=== PATIENT | male | born 1995 | race Two or more races ===

== ENCOUNTER → 2024-04-24 | Outpatient (CLI) | payer MEDICAID, SELFPAY ==
--- NOTE | 2024-04-24 09:10 | RESP.EEG ---
EEG COMPLETED AT THIS TIME AND WAITING TO BE READ
== END | disposition home or self-care (01) ==
PROVIDERS: PCP Psychiatry & Neurology Neurology; Referring Provider Psychiatry & Neurology Neurology; Visit Provider Psychiatry & Neurology Neurology
DX: R94.01 Abnormal electroencephalogram [EEG] (principal)
CPT/HCPCS: 95816